=== PATIENT | female | born 1940 | race African-American/Black ===

== ENCOUNTER 2017-03-14 13:59 | Day surgery (SDCO) | payer MEDICARE, OTHER ==
[~2017-03-14] VITALS: Ht 167.6 cm; Wt 60.0 kg
[2017-03-14 14:38] LABS: BILIRUBIN NEGATIVE (NEGATIVE); BLOOD 3+ Ery/uL (NEGATIVE); CLARITY CLEAR (CLEAR); COLOR YELLOW (YELLOW); GLUCOSE (U) NORMAL (NORMAL); KETONE (U) NEGATIVE (NEGATIVE); LEUKOCYTES NEGATIVE Leu/uL (NEGATIVE); NITRITE NEGATIVE (NEGATIVE); PROTEIN TRACE (LOW) mg/dL (NEGATIVE); UROBILINOGEN 0.2 mg/dL (0.2-1.0); pH 5.5 (5.0-9.0)
[2017-03-14 14:47] LABS: URINARY RBC 20-50
[2017-03-14 14:48] LABS: BACTERIA TRACE; SQUAMOUS EPITHELIAL CELLS RARE; URINARY WBC RARE
[2017-03-14 14:50] LABS: BASOPHIL 0.2 % (0-2); EOSINOPHIL 0.6 % (0-7); HCT 39.7 % (37.0-47.0); HGB 12.6 g/dl (12.5-16.0); LYMPHOCYTE 25.7 % (15-48); MCH 30.4 pg (25.0-31.0); MCHC 31.7 g/dL (32.0-36.0); MCV 95.9 fL (78.0-100.0); MONOCYTE 6.9 % (0-12); MPV 10.3 fL (6.0-9.5); NEUTROPHIL 66.6 % (41-80); PLT 204 K/uL (150-400); RBC 4.14 M/uL (4.20-5.40); RDW 13.2 % (11.5-14.0); WBC 5.2 K/uL (4.0-10.5)
[2017-03-14 15:36] LABS: INR 2.54 (0.9-1.2); PROTHROMBIN TIME 26.7 SECONDS (11.7-14.0); PTT 39.4 SECONDS (23.2-31.4)
[2017-03-14 15:42] LABS: LACTIC ACID 1.4 mmol/L (0.5-2.2)
[2017-03-14 15:44] LABS: CREATININE 0.8 mg/dL (0.5-1.0); POTASSIUM 3.5 mmol/L (3.5-5.1)
[2017-03-16 04:25] LABS: BASOPHIL 0.1 % (0-2); EOSINOPHIL 0.1 % (0-7); HCT 34.7 % (37.0-47.0); HGB 11.3 g/dl (12.5-16.0); LYMPHOCYTE 25.3 % (15-48); MCHC 32.6 g/dL (32.0-36.0); MCV 95.3 fL (78.0-100.0); MONOCYTE 10.4 % (0-12); MPV 10.1 fL (6.0-9.5); NEUTROPHIL 64.1 % (41-80); PLT 200 K/uL (150-400); RBC 3.64 M/uL (4.20-5.40); RDW 12.9 % (11.5-14.0); WBC 7.1 K/uL (4.0-10.5)
[2017-03-16 04:43] LABS: CREATININE 0.8 mg/dL (0.5-1.0); MAGNESIUM 2.02 mg/dL (1.40-2.10); POTASSIUM 3.9 mmol/L (3.5-5.1)
== END 2017-03-16 16:00 ==
LOC: FER 13:59 → FTCU 17:02
PROVIDERS: Emergency Medicine; Internal Medicine; ADMIT Internal Medicine
DX: I69.951 Hemiplegia and hemiparesis following unspecified cerebrovascular disease affecting right dominant side (principal); I10 Essential (primary) hypertension; F32.9 Major depressive disorder, single episode, unspecified; M06.9 Rheumatoid arthritis, unspecified; Z87.442 Personal history of urinary calculi; Z96.659 Presence of unspecified artificial knee joint; Z79.01 Long term (current) use of anticoagulants; Z79.82 Long term (current) use of aspirin; Z79.899 Other long term (current) drug therapy
CPT/HCPCS: 36415; 70450; 70486; 70551; 71010; 80048; 81001; 83605; 83735; 84443; 84484; 85025; 85610; 85730; 93005; 93880; 97163; 97167; 97530; 97530-GP; 97535; C9113; G0378; J2270; J2405